=== PATIENT | female | born 2000 | race African-American/Black ===

== ENCOUNTER 2020-12-17 09:29 | Emergency (ER) | payer SELFPAY ==
[2020-12-17 09:39] VITALS: BP 101/63; PULSE 64; TEMP 98.4; BMI 20.2
== END 2020-12-17 10:56 | disposition home or self-care (01) ==
LOC: JERFT 09:29
DX: S41.152A Open bite of left upper arm, initial encounter (principal)
CPT/HCPCS: 99281-25